=== PATIENT | male | born 1965 | race African-American/Black ===

== ENCOUNTER 2017-03-21 01:45 | Emergency (ER) | payer SELFPAY ==
[~2017-03-21] VITALS: Ht 177.8 cm; Wt 96.2 kg
[2017-03-21 02:12] VITALS: BP 147/84
[2017-03-21] MEDS ORDERED: BACLOFEN 10 MG TAB PO ONE (03:45)
== END 2017-03-21 03:54 | disposition home or self-care (01) ==
LOC: ER 01:45
DX: S93.402A Sprain of unspecified ligament of left ankle, initial encounter (principal); S70.02XA Contusion of left hip, initial encounter; S39.012A Strain of muscle, fascia and tendon of lower back, initial encounter; F17.210 Nicotine dependence, cigarettes, uncomplicated; W18.39XA Other fall on same level, initial encounter; Y93.89 Activity, other specified; Y92.89 Other specified places as the place of occurrence of the external cause; Y99.8 Other external cause status
CPT/HCPCS: 72100; 73502; 73610